=== PATIENT | female | born 1960 | race American Indian/Alaskan Native ===

== ENCOUNTER 2019-03-31 21:35 | Observation (INO) | payer OTHER ==
--- NOTE | 2019-03-31 22:08 | Consultation ---
History of Present Illness Consult date: 03/31/19 History of present illness: [facility] Date of Service:03/31/2019 21:50:08 Impression: RO Acute Ischemic Stroke Comments: 58 YO F with h/o hypothyroidism presented with left sided weakness and slurred speech likely a small stroke. She is out of window for any acute stroke treatment. Metrics: Last Known Well: Unknown [facility] Notification Time: 03/31/2019 21:48:32 Arrival Time: 03/31/2019 21:35:00 Stamp Time: 03/31/2019 21:50:08 Time First Login Attempt: 03/31/2019 21:52:56 Video Start Time: 03/31/2019 21:52:56 Symptoms: left sided weakness/slurred speech NIHSS Start Assessment Time: 03/31/2019 21:55:23 Patient is not a candidate for tPA. Patient was not deemed candidate for tPA thrombolytics because of Last Well Known Above 4.5 Hours. Video End Time: 03/31/2019 22:03:29 CT head showed no acute hemorrhage or acute core infarct. Advanced imaging was not obtained as the presentation was not suggestive of Large Vessel Occlusive Disease. ER Physician notified of the decision on thrombolytics management on 03/31/2019 22:03:30 Our recommendations are outlined below. Recommendations: Activate Stroke Protocol Admission/Order Set Stroke/Telemetry Floor Neuro Checks Bedside Swallow Eval DVT Prophylaxis IV Fluids, Normal Saline Head of Bed Below 30 Degrees Euglycemia and Avoid Hyperthermia (PRN Acetaminophen) Initiate Aspirin 81 MG Daily Recommended Scan: MRI Head Carotid Dopplers Lipid Panel to Be Obtained, if Not Done in the Last Three Months Therapies: Physical Therapy, Occupational Therapy, Speech Therapy Assessment When Applicable Dysphaghia Screen: Swallow Evaluation, Bedside NPO Until Swallow Evaluation DVT prophylaxis: Choice of Primary Team Disposition: Follow up with Teleneurology Follow up Sign Out: Discussed with Emergency Department Provider History of Present Illness: Patient is a 58 year old Female. Patient was brought by private transportation with symptoms of left sided weakness/slurred speech 58 YO F with h/o hypothyroidism presented with left sided weakness and slurred speech. she states that left sided weakness started on Sunday but she started having slurred speech about half an hour ago [employer]. CT head showed no acute hemorrhage or acute core infarct. Examination: BP(139/77),Pulse(82),Blood Glucose(92) 1A: Level of Consciousness - Alert; keenly responsive+ 0 1B: Ask Month and Age - Both Questions Right+ 0 1C: Blink Eyes & Squeeze Hands - Performs Both Tasks+ 0 2: Test Horizontal Extraocular Movements - Normal+ 0 3: Test Visual Chavira - No Visual Loss+ 0 4: Test Facial Palsy (Use Grimace if Obtunded) - Normal symmetry+ 0 5A: Test Left Arm Motor Drift - No Drift for 10 Seconds+ 0 5B: Test Right Arm Motor Drift - No Drift for 10 Seconds+ 0 6A: Test Left Leg Motor Drift - No Drift for 5 Seconds+ 0 6B: Test Right Leg Motor Drift - No Drift for 5 Seconds+ 0 7: Test Limb Ataxia (FNF/Heel-Carnes) - No Ataxia+ 0 8: Test Sensation - Mild-Moderate Loss: Less Sharp/More Dull+ 1 9: Test Language/Aphasia - Normal; No aphasia+ 0 10: Test Dysarthria - Mild-Moderate Dysarthria: Slurring but can be understood+ 1 11: Test Extinction/Inattention - No abnormality+ 0 NIHSS Score:2 Patient was informed the Neurology Consult would happen via TeleHealth consult by way of interactive audio and video telecommunications and consented to receiving care in this manner. Due to the immediate potential for life-threatening deterioration due to underlying acute neurologic illness, I spent 35 minutes providing critical care. This time includes time for face to face visit via telemedicine, review of medical records, imaging studies and discussion of findings with providers, the patient and/or family. Dr Olivier Tesfaye [facility] Case [id number] Medications and Allergies Allergies Allergy/AdvReac Type Severity Reaction Status Date / Time No Known Allergies Allergy Unverified 07/04/13 16:45 Home Medications Medication Instructions Recorded Confirmed Last Taken Type HYDROcodone/APAP 7.5-325 [[place] 1 each PO Q6HR PRN #20 tablet 07/04/13 Unknown Rx 7.5/325 mg] Levothyroxine [Synthroid] 50 mcg PO QAM 07/04/13 07/04/13 07/04/13 History
--- NOTE | 2019-03-31 22:11 | Cat Scan Report ---
CT HEAD WITHOUT CONTRAST INDICATION : neuro deficits <6hrs or sx present upon awakening. TECHNIQUE: Axial, coronal and sagittal CT imaging was performed from the skull apex through the skul l base without contrast. All CT scans at this location are performed using CT dose reduction for ALA RA by means of automated exposure control. COMPARISON: None available. FINDINGS: PARENCHYMA: No mass, midline shift, hemorrhage, extraaxial collection or acute territorial infarctio n. VENTRICLES: Symmetric and normal in size. SOFT TISSUES: Soft tissues including the orbits appear normal. BONES: No acute osseous abnormality. SINUSES: No significant abnormality. ADDITIONAL FINDINGS: None. IMPRESSION: No acute intracranial abnormality. CRITICAL RESULT: Radiologist: Dr. Thurman Time of Discovery: 21:00 APPRENTICESHIP CONSULTANT Time of Communication: 21:06 APPRENTICESHIP CONSULTANT Licensed Practitioner Receiving Report: Dr. Corrigan Read Back Performed: Yes. Signer Name: Kee Thurman MD Signed: 03/31/2019 10:07 PM Workstation Name: [id number]
[2019-03-31 23:00] LABS: Hemoglobin 13.7 gm/dl (10.1-14.3); Mean Corpuscular HGB Conc 33 % (30-34); Mean Corpuscular Volume 96 fl (79-97); Platelet Count 254 K/mm3 (140-440); Red Blood Count 4.37 M/mm3 (3.65-5.03); Red Cell Distribution Width 13.5 % (13.2-15.2)
--- NOTE | 2019-03-31 23:03 | Emergency Department Report ---
ED General Adult HPI - General Chief complaint: Neuro Symptoms/Deficit Stated complaint: LEFT SIDE PAIN Time Seen by Provider: 03/31/19 21:50 Source: patient, family Mode of arrival: Wheelchair Limitations: No Limitations - History of Present Illness Initial comments: Patient presents to the emergency department with a chief complaint left-sided weakness that started on Sunday. Patient states that she began to have slurred speech today approximately a half an hour before arrival to the ED. Patient also complains of neck pain that. Patient also complains of neck pain that radiates into her left arm. She states this has been present for the last couple of days as well. Patient denies any chest pain, shortness breath, or abdominal pain. -: Sudden Location: upper extremity Severity scale (0 -10): 4 Quality: aching Consistency: constant Improves with: none Worsens with: none Associated Symptoms: denies other symptoms Treatments Prior to Arrival: none - Related Data Home Medications Medication Instructions Recorded Confirmed Last Taken Levothyroxine [Synthroid] 50 mcg PO QAM 07/04/13 04/01/19 03/31/19 Allergies Allergy/AdvReac Type Severity Reaction Status Date / Time No Known Allergies Allergy Unverified 07/04/13 16:45 ED Review of Systems ROS: Stated complaint: LEFT SIDE PAIN Other details as noted in HPI Comment: All other systems reviewed and negative Constitutional: denies: chills, fever Eyes: denies: eye pain, eye discharge, vision change ENT: denies: ear pain, throat pain Respiratory: denies: cough, shortness of breath, wheezing Cardiovascular: denies: chest pain, palpitations Endocrine: no symptoms reported Gastrointestinal: denies: abdominal pain, nausea, diarrhea Genitourinary: denies: urgency, dysuria, discharge Musculoskeletal: denies: back pain, joint swelling, arthralgia Skin: denies: rash, lesions Neurological: denies: headache, weakness, paresthesias Psychiatric: denies: anxiety, depression Hematological/Lymphatic: denies: easy bleeding, easy bruising ED Past Medical Hx - Past Medical History Additional medical history: Hypothyroidism - Surgical History Additional Surgical History: Tubaligation - Social History Smoking Status: Current Every Day Smoker Substance Use Type: Alcohol, Prescribed - Medications Home Medications: Home Medications Medication Instructions Recorded Confirmed Last Taken Type Levothyroxine [Synthroid] 50 mcg PO QAM 0204/01/19 03/31/19 History ED Physical Exam - General Limitations: No Limitations General appearance: alert, in no apparent distress - Head Head exam: Present: atraumatic, normocephalic - Eye Eye exam: Present: normal appearance, PERRL, EOMI - ENT ENT exam: Present: mucous membranes moist - Neck Neck exam: Present: normal inspection - Respiratory Respiratory exam: Present: normal lung sounds bilaterally. Absent: respiratory distress, wheezes, rales - Cardiovascular Cardiovascular Exam: Present: regular rate, normal rhythm. Absent: systolic murmur, diastolic murmur, rubs, gallop - GI/Abdominal GI/Abdominal exam: Present: soft, normal bowel sounds. Absent: distended, tenderness - Extremities Exam Extremities exam: Present: normal inspection - Back Exam Back exam: Present: normal inspection - Neurological Exam Neurological exam: Present: alert, oriented X3, CN II-XII intact. Absent: motor sensory deficit - Psychiatric Psychiatric exam: Present: normal affect, normal mood - Skin Skin exam: Present: warm, dry, intact, normal color. Absent: rash ED Medical Decision Making - Lab Data Result diagrams: 03/31/19 22:23 03/31/19 22:23 Lab Results 03/31/19 03/31/19 03/31/19 Range/Units 21:51 22:23 22:23 WBC 4.7 (4.5-11.0) K/mm3 RBC 4.37 (3.65-5.03) M/mm3 Hgb 13.7 (10.1-14.3) gm/dl Hct 42.0 (30.3-42.9) % MCV 96 (79-97) fl MCH 31 (28-32) pg MCHC 33 (30-34) % RDW 13.5 (13.2-15.2) % Plt Count 254 (140-440) K/mm3 Add Manual Diff Complete Total Counted 100 Seg Neutrophils % Machine I Coremaker Seg Neuts % (Manual) 33.0 L (40.0-70.0) % Band Neutrophils % 0 % Lymphocytes % (Manual) 54.0 H (13.4-35.0) % Reactive Lymphs % (Man) 0 % Monocytes % (Manual) 10.0 H (0.0-7.3) % Eosinophils % (Manual) 3.0 (0.0-4.3) % Basophils % (Manual) 0 (0.0-1.8) % Metamyelocytes % 0 % Myelocytes % 0 % Promyelocytes % 0 % Blast Cells % 0 % Nucleated RBC % Not Reportable Seg Neutrophils # Man 1.6 L (1.8-7.7) K/mm3 Band Neutrophils # 0.0 K/mm3 Lymphocytes # (Manual) 2.5 (1.2-5.4) K/mm3 Abs React Lymphs (Man) 0.0 K/mm3 Monocytes # (Manual) 0.5 (0.0-0.8) K/mm3 Eosinophils # (Manual) 0.1 (0.0-0.4) K/mm3 Basophils # (Manual) 0.0 (0.0-0.1) K/mm3 Metamyelocytes # 0.0 K/mm3 Myelocytes # 0.0 K/mm3 Promyelocytes # 0.0 K/mm3 Blast Cells # 0.0 K/mm3 WBC Morphology Not Reportable Hypersegmented Neuts Not Reportable Hyposegmented Neuts Not Reportable Hypogranular Neuts Not Reportable Smudge Cells Not Reportable Toxic Granulation Not Reportable Toxic Vacuolation Not Reportable Dohle Bodies Not Reportable Pelger-Huet Anomaly Not Reportable Mami Rods Not Reportable Platelet Estimate Consistent w auto Clumped Platelets Not Reportable Plt Clumps, EDTA Not Reportable Large Platelets Not Reportable Giant Platelets Not Reportable Platelet Satelliting Not Reportable Plt Morphology Comment Not Reportable RBC Morphology Not Reportable Dimorphic RBCs Not Reportable Polychromasia Not Reportable Hypochromasia Not Reportable Poikilocytosis Not Reportable Anisocytosis Not Reportable Microcytosis Not Reportable Macrocytosis Not Reportable Spherocytes Not Reportable Pappenheimer Bodies Not Reportable Sickle Cells Not Reportable Target Cells Not Reportable Tear Drop Cells Not Reportable Ovalocytes Not Reportable Stomatocytes Rare Helmet Cells Not Reportable [place] Bodies Not Reportable [place] Rings Not Reportable [place] Cells Not Reportable Bite Cells Not Reportable Crenated Cell Not Reportable Elliptocytes Not Reportable Acanthocytes (Spur) Not Reportable Rouleaux Not Reportable Hemoglobin C Crystals Not Reportable Schistocytes Not Reportable Malaria parasites Not Reportable Elio Bodies Not Reportable Hem Pathologist Commnt No PT 12.1 L (12.2-14.9) Sec. INR 0.90 (0.87-1.13) APTT 32.4 (24.2-36.6) Sec. Thrombin Time (15.1-19.6) Sec. Sodium (137-145) mmol/L Potassium (3.6-5.0) mmol/L Chloride (98-107) mmol/L Carbon Dioxide (22-30) mmol/L Anion Gap mmol/L BUN (7-17) mg/dL Creatinine (0.7-1.2) mg/dL Estimated GFR ml/min BUN/Creatinine Ratio % Glucose (65-100) mg/dL POC Glucose 92 (70-105) Troponin T (0.00-0.029) ng/mL 03/31/19 03/31/19 Range/Units 22:23 22:23 WBC (4.5-11.0) K/mm3 RBC (3.65-5.03) M/mm3 Hgb (10.1-14.3) gm/dl Hct (30.3-42.9) % MCV (79-97) fl MCH (28-32) pg MCHC (30-34) % RDW (13.2-15.2) % Plt Count (140-440) K/mm3 Add Manual Diff Total Counted Seg Neutrophils % Seg Neuts % (Manual) (40.0-70.0) % Band Neutrophils % % Lymphocytes % (Manual) (13.4-35.0) % Reactive Lymphs % (Man) % Monocytes % (Manual) (0.0-7.3) % Eosinophils % (Manual) (0.0-4.3) % Basophils % (Manual) (0.0-1.8) % Metamyelocytes % % Myelocytes % % Promyelocytes % % Blast Cells % % Nucleated RBC % Seg Neutrophils # Man (1.8-7.7) K/mm3 Band Neutrophils # K/mm3 Lymphocytes # (Manual) (1.2-5.4) K/mm3 Abs React Lymphs (Man) K/mm3 Monocytes # (Manual) (0.0-0.8) K/mm3 Eosinophils # (Manual) (0.0-0.4) K/mm3 Basophils # (Manual) (0.0-0.1) K/mm3 Metamyelocytes # K/mm3 Myelocytes # K/mm3 Promyelocytes # K/mm3 Blast Cells # K/mm3 WBC Morphology Hypersegmented Neuts Hyposegmented Neuts Hypogranular Neuts Smudge Cells Toxic Granulation Toxic Vacuolation Dohle Bodies Pelger-Huet Anomaly Mami Rods Platelet Estimate Clumped Platelets Plt Clumps, EDTA Large Platelets Giant Platelets Platelet Satelliting Plt Morphology Comment RBC Morphology Dimorphic RBCs Polychromasia Hypochromasia Poikilocytosis Anisocytosis Microcytosis Macrocytosis Spherocytes Pappenheimer Bodies Sickle Cells Target Cells Tear Drop Cells Ovalocytes Stomatocytes Helmet Cells [place] Bodies [place] Rings Osco Cells Bite Cells Crenated Cell Elliptocytes Acanthocytes (Spur) Rouleaux Hemoglobin C Crystals Schistocytes Malaria parasites Elio Bodies Hem Pathologist Commnt PT (12.2-14.9) Sec. INR (0.87-1.13) APTT (24.2-36.6) Sec. Thrombin Time 18.2 (15.1-19.6) Sec. Sodium 141 (137-145) mmol/L Potassium 4.3 (3.6-5.0) mmol/L Chloride 104.1 (98-107) mmol/L Carbon Dioxide 25 (22-30) mmol/L Anion Gap 16 mmol/L BUN 17 (7-17) mg/dL Creatinine 0.7 (0.7-1.2) mg/dL Estimated GFR > 60 ml/min BUN/Creatinine Ratio 24 % Glucose 115 H (65-100) mg/dL POC Glucose (70-105) Troponin T < 0.010 (0.00-0.029) ng/mL - EKG Data -: EKG Interpreted by Ct EKG shows normal: sinus rhythm Rate: normal - Radiology Data Radiology results: report reviewed - Medical Decision Making Discussion discussed with tele neurology who felt the patient needed admission for further workup for stroke. Patient did have remaining mouth slurred speech on initial and repeat exams Results and plan of care discussed the patient Critical care attestation.: If time is entered above; I have spent that time in minutes in the direct care o f this critically ill patient, excluding procedure time. ED Disposition Clinical Impression: Slurred speech Disposition: [id number] OP ADMIT IP TO THIS HOSP Is pt being admited?: Yes Does the pt Need Aspirin: Yes Condition: Fair - Assessment Assessment Interval: Baseline - Level of Consciousness 1a. Level of Consciousness: alert/keenly responsive - LOC Questions 1b. LOC Questions: answers both correctly - LOC Command 1c. LOC Commands: performs tasks correctly - Best Gaze 2. Best Gaze: normal - Visual 3. Visual: no visual loss - Facial Palsy 4. Facial Palsy: normal symmetrical movement - Motor Arm 5a. Motor Arm Left: no drift 5b. Motor Arm Right: no drift - Motor Leg 6a. Motor Leg Left: no drift 6b. Motor Leg Right: no drift - Limb Ataxia 7. Limb Ataxia: absent - Sensory 8. Sensory: normal - Best Language 9. Best Language: no aphasia - Dysarthria 10. Dysarthria: mild/moderate dysarthria - Extinction and Inattention 11. Extinction/Inattention: no abnormality - Scoring Total Score: 1 Stroke Severity: Minor Stroke
[2019-03-31 23:12] LABS: INR 0.9 (0.87-1.13)
[2019-03-31 23:13] LABS: Partial Thromboplastin Time 32.4 Sec. (24.2-36.6)
[2019-03-31 23:25] LABS: BUN/Creatinine Ratio 24; Blood Urea Nitrogen 17 mg/dL (7-17); Hemolysis Index 57
[2019-04-01] MEDS ORDERED: HYDROcodone/ACETAMINOPHEN 5-325 MG TAB PO ONE (00:01)
[2019-04-01] MEDS ORDERED: HYDROcodone/ACETAMINOPHEN 5-325 MG TAB ONE (00:04)
[2019-04-01 00:21] LABS: Basophils % (Manual) 0 % (0.0-1.8); Total Cells Counted 100
[2019-04-01 00:22] LABS: Platelet Estimate Consistent w Auto; Stomatocytes Rare
[2019-04-01] MEDS ORDERED: METOCLOPRAMIDE 10 MG TAB PO PRN (01:13)
[2019-04-01] MEDS ORDERED: MAGNESIUM HYDROXIDE (MOM) ORAL LIQD UDC PO PRN (01:13)
[2019-04-01] MEDS ORDERED: ACETAMINOPHEN 325 MG TAB PO PRN (01:13)
[2019-04-01] MEDS ORDERED: PROMETHAZINE 25 MG RECT SUPP PR PRN (01:13)
[2019-04-01] MEDS ORDERED: ONDANSETRON 4 MG/2 ML INJ IV PRN (01:13)
--- NOTE | 2019-04-01 01:28 | History and Physical Report ---
History of Present Illness Date of examination: 04/01/19 Date of admission: 04/01/19 00:27 Chief complaint: Left upper extremity and left facial numbness History of present illness: 58 year old female with known history of hypothyroidism presenting to the emergency room today complaining of slurred speech left sided facial numbness and left upper extremity pain and numbness. This has been ongoing for a couple of hours and upon arrival in the emergency room symptoms had resolved She was evaluated by the telemetry neurologist and was determined that she is not a TPA candidate. He has also been having some neck pain, she denies any fall or trauma to the neck. She denies any headache. Workup in the emergency room including CT scan of the head was unremarkable. Past History Past Medical History: hypothyroidism, other Past Surgical History: Other (bilateral tubal ligation, left knee surgery.) Social history: alcohol abuse (alcohol occasionally, denies tobacco abuse) Family history: cancer (Both parents had pancreatic cancer, mother had breast cancer, mother also had diabetes mellitus.), hypertension (father had hypertension) Medications and Allergies Allergies Allergy/AdvReac Type Severity Reaction Status Date / Time No Known Allergies Allergy Unverified 07/04/13 16:45 Home Medications Medication Instructions Recorded Confirmed Last Taken Type Levothyroxine [Synthroid] 50 mcg PO QAM 07/04/13 04/01/19 03/31/19 History Active Meds: Active Medications Acetaminophen (Tylenol) 650 mg PO Q4H PRN PRN Reason: Pain, Mild (1-3) Aspirin (Aspirin) 325 mg PO QDAY AMBROSIO Bisacodyl (Dulcolax) 10 mg OH QDAY PRN PRN Reason: Constipation Magnesium Hydroxide (Milk Of Magnesia) 30 ml PO Q4H PRN PRN Reason: Constipation Metoclopramide HCl (Reglan) 10 mg PO Q6H PRN PRN Reason: Nausea And Vomiting Morphine Sulfate (Morphine) 2 mg IV Q4H PRN PRN Reason: Pain, Moderate (4-6) Ondansetron HCl (Zofran) 4 mg IV Q8H PRN PRN Reason: Nausea And Vomiting Promethazine HCl (Phenergan) 25 mg OH Q6H PRN PRN Reason: Nausea And Vomiting Sodium Chloride (Sodium Chloride Flush Syringe 10 Ml) 10 ml INJ PRN PRN PRN Reason: LINE FLUSH Exam - Constitutional Vitals: Temp Pulse Resp BP Pulse Ox 70 19 129/71 96 03/31/19 23:15 03/31/19 23:15 03/31/19 23:15 03/31/19 23:15 General appearance: Present: no acute distress, well-nourished - EENT Eyes: Present: PERRL, EOM intact ENT: hearing intact, clear oral mucosa - Neck Neck: Present: supple, normal ROM - Respiratory Respiratory effort: normal Respiratory: bilateral: CTA - Cardiovascular Rhythm: regular Heart Sounds: Present: S1 & S2 - Extremities Extremities: no ischemia, pulses intact, No edema Peripheral Pulses: within normal limits - Abdominal General gastrointestinal: Present: soft, non-tender, non-distended - Integumentary Integumentary: Present: clear, warm, dry - Musculoskeletal Musculoskeletal: strength equal bilaterally - Psychiatric Psychiatric: appropriate mood/affect, intact judgment & insight, cooperative - Neurologic Neurologic: CNII-XII intact, moves all extremities Results - Labs CBC & Chem 7: 03/31/19 22:23 03/31/19 22:23 Labs: Abnormal lab results 03/31/19 03/31/19 03/31/19 Range/Units 22:23 22:23 22:23 Seg Neuts % (Manual) 33.0 L (40.0-70.0) % Lymphocytes % (Manual) 54.0 H (13.4-35.0) % Monocytes % (Manual) 10.0 H (0.0-7.3) % Seg Neutrophils # Man 1.6 L (1.8-7.7) K/mm3 PT 12.1 L (12.2-14.9) Sec. Glucose 115 H (65-100) mg/dL Assessment and Plan - Patient Problems (1) Slurred speech Current Visit: Yes Status: Acute Plan to address problem: Slurred Speech has resolved however will be worked up for CVA. She is scheduled for carotid Doppler and MRI of the brain. With requests neurology follow-up. (2) Hypothyroidism Current Visit: Yes Status: Acute Plan to address problem: Resume routine home medications once reconciled (3) DVT prophylaxis Current Visit: Yes Status: Acute Plan to address problem: Placed on subcutaneous heparin. (4) Full code status Current Visit: Yes Status: Acute
[2019-04-01 01:30] LABS: Calcium 9.5 mg/dL (8.4-10.2)
[2019-04-01] MEDS: MORPHINE 2 MG/1 ML INJ IV PRN ×2 (05:49→14:42)
[2019-04-01] MEDS ORDERED: ASPIRIN 325 MG TAB PO SCH (10:00)
--- NOTE | 2019-04-01 12:13 | Magnetic Resonance Report ---
MRI BRAIN WITHOUT CONTRAST, MRA HEAD WITHOUT CONTRAST, MRA NECK WITHOUT CONTRAST INDICATION / CLINICAL INFORMATION: stroke. Patient symptoms include left facial numbness and slurred speech. TECHNIQUE: Multiplanar, multi sequential MRI images of the brain. Routine MRA of the head and routine MRA of th e neck are performed. 3-D/MIP reformats postprocessed. Percentage stenosis is determined by direct qu antitative measurements of distal internal carotid artery diameter compared with normal reference seg ments or by criteria similar to NASCET where applicable. COMPARISON: None available. FINDINGS: MR BRAIN: BRAIN / INTRACRANIAL CONTENTS: No acute ischemia, acute hemorrhage, mass effect, midline shift, or hy drocephalus. No chronic infarct or significant atrophy. No significant demyelinating changes. CRANIOCERVICAL JUNCTION: No significant abnormality. ORBITS: No significant abnormality of visualized orbits. SINUSES / MASTOIDS: There is mild fluid/mucosal thickening partially opacifying the left mastoid. ADDITIONAL FINDINGS: None. MRA HEAD: Intracranial vertebral arteries: No significant abnormality. Basilar artery: No significant abnormality. Posterior cerebral arteries: No significant abnormality. Intracranial internal carotid arteries: No significant abnormality. Anterior cerebral arteries: No significant abnormality. Middle cerebral arteries: No significant abnormality. Additional findings: None. MRA NECK: Aortic arch: No significant abnormality. Cervical vertebral arteries: No significant abnormality. Common carotid arteries: No significant abnormality. Cervical internal carotid arteries: No significant abnormality. Additional findings: None. IMPRESSION: 1. No evidence of acute infarct or other acute intracranial abnormality. The brain appears normal for age. 2. No significant stenosis or large vessel occlusion in the cervical or intracranial arteries. Signer Name: Juventino Hillman MD Signed: 04/01/2019 12:09 PM Workstation Name: [id number]
--- NOTE | 2019-04-01 12:24 | Event Note ---
Date: 04/01/19 Patient with left sided weakness, numbness. I have seen and examined her. MRI pending
--- NOTE | 2019-04-01 13:48 | Consultation ---
History of Present Illness Consult date: 04/01/19 Reason for Consult: Possible stroke Chief complaint: Left sided weakness History of present illness: Patient is a 58 y/o woman w/ h/o hypothyroidism. She states that her symptoms initially began 4 days ago, as she developed pain in the neck, that radiated to the LUE. She also noted some mild weakness in LUE/LLE. Yesterday at about 10pm, she developed slurred speech, and paresthesias on left cheek, which have persisted. Patient denies any falls or head injury. She states that weakness has improved, however she continues to experience pain in the neck that radiates to LUE. Past History Past Medical History: hypothyroidism, other Past Surgical History: Other (bilateral tubal ligation, left knee surgery.) Social history: smoking Family history: cancer (Both parents had pancreatic cancer, mother had breast cancer, mother also had diabetes mellitus.), hypertension (father had hypertension) Medications and Allergies Allergies Allergy/AdvReac Type Severity Reaction Status Date / Time No Known Allergies Allergy Unverified 07/04/13 16:45 Home Medications Medication Instructions Recorded Confirmed Last Taken Type Levothyroxine [Synthroid] 50 mcg PO QAM 07/04/13 04/01/19 03/31/19 History Active Meds: Active Medications Acetaminophen (Tylenol) 650 mg PO Q4H PRN PRN Reason: Pain, Mild (1-3) Aspirin (Aspirin) 325 mg PO QDAY AMBROSIO Bisacodyl (Dulcolax) 10 mg MO QDAY PRN PRN Reason: Constipation Magnesium Hydroxide (Milk Of Magnesia) 30 ml PO Q4H PRN PRN Reason: Constipation Metoclopramide HCl (Reglan) 10 mg PO Q6H PRN PRN Reason: Nausea And Vomiting Morphine Sulfate (Morphine) 2 mg IV Q4H PRN PRN Reason: Pain, Moderate (4-6) Last Admin: 04/01/19 05:49 Dose: 2 mg Documented by: Ondansetron HCl (Zofran) 4 mg IV Q8H PRN PRN Reason: Nausea And Vomiting Promethazine HCl (Phenergan) 25 mg MO Q6H PRN PRN Reason: Nausea And Vomiting Sodium Chloride (Sodium Chloride Flush Syringe 10 Ml) 10 ml IV PRN PRN PRN Reason: LINE FLUSH Last Admin: 04/01/19 05:51 Dose: 10 ml Documented by: Review of Systems All systems: negative Musculoskeletal: neck pain Neurological: weakness, parathesias, change in speech Physical Examination - Vital Signs Vital Signs: Vital Signs Pulse Resp BP Pulse Ox 81 18 134/73 97 03/31/19 22:15 03/31/19 22:15 03/31/19 22:15 03/31/19 22:15 - Physical Exam Narrative exam: Patient is alert, awake, oriented x4. Follows complex commands. PERRL, EOMI, VFF, no facial weakness noted, tongue midline, mild decrease to LT on left V2 distribution. 5/5 strength in all extremities. b/l intact to LT. B/l intact to FTN and HTS. 2+ reflexes throughout. No dysarthria or aphasia noted. - Constitutional General appearance: comfortable - EENT EENT: Present: ATNC, PERRL, mucous membranes moist, hearing intact, vision intact - Respiratory Respiratory: Present: lungs clear, normal breath sounds - Cardiovascular Cardiovascular: Present: regular rate, normal S1, normal S2 Extremities: Present: no clubbing, cyanosis, no inflammation - Gastrointestinal Gastrointestinal: Present: normoactive bowel sounds, soft, non-tender - Integumentary Integumentary: Present: normal - Musculoskeletal Musculoskeletal: Present: no fluid collection - Psychiatric Psychiatric: Present: mood/affect appropriate - Level of Consciousness 1a. Level of Consciousness: alert/keenly responsive - LOC Questions 1b. LOC Questions: answers both correctly - LOC Command 1c. LOC Commands: performs tasks correctly - Best Gaze 2. Best Gaze: normal - Visual 3. Visual: no visual loss - Facial Palsy 4. Facial Palsy: normal symmetrical movement - Motor Arm 5a. Motor Arm Left: no drift 5b. Motor Arm Right: no drift - Motor Leg 6a. Motor Leg Left: no drift 6b. Motor Leg Right: no drift - Limb Ataxia 7. Limb Ataxia: absent - Sensory 8. Sensory: mild/moderate sensory loss - Best Language 9. Best Language: no aphasia - Dysarthria 10. Dysarthria: normal - Extinction and Inattention 11. Extinction/Inattention: no abnormality - Scoring Total Score: 1 Stroke Severity: Minor Stroke Results - Laboratory Findings CBC and BMP: 03/31/19 22:23 03/31/19 22:23 Abnormal Lab Findings: Abnormal Labs 03/31/19 03/31/1903/31/19 22:23 22:23 22:23 Seg Neuts % (Manual) 33.0 L Lymphocytes % (Manual) 54.0 H Monocytes % (Manual) 10.0 H Seg Neutrophils # Man 1.6 L PT 12.1 L Glucose 115 H Assessment and Plan Patient is a 58 y/o woman w/ h/o hypothyroidism, who p/w neck pain, and left sided weakness. According to the patient's clinical findings, it is possible that the patient has cervical myelopathy vs. TIA vs. conversion d/o. MRI did not show any evidence of a stroke and patient states that her main complaint is cervical pain, that radiates to LUE. Plan: 1. Neck pain w/ left sided weakness: - Weakness on LUE/LLE improved. No notable weakness on exam - MRI brain: unremarkable - MRA head/neck: no significant stenosis - MRI Cervical spine pending - Echo pending - Cont. ASA - LDL pending. - PT/OT/ST - Telemetry monitoring while in house - DVT Ppx: recommend lovenox - Blood pressure: recommend BP target of normotension, as no evidence of stroke on MRI brain. - Will continue to monitor patient. Thank you for allowing me to take part in the care of this patient. Randy Kessler MD Neurology
--- NOTE | 2019-04-01 14:13 | Magnetic Resonance Report ---
MRI CERVICAL SPINE WITHOUT CONTRAST INDICATION / CLINICAL INFORMATION: neck pain and left sided weakness. TECHNIQUE: Multisequence, multiplanar images of the cervical spine were obtained. COMPARISON: None available. FINDINGS: CRANIOCERVICAL JUNCTION:No significant abnormality. ALIGNMENT: There is gentle reversal of the cervical lordosis without focal subluxation. VERTEBRAE:Normal marrow signal and vertebral body height for age. VISUALIZED SPINAL CORD: No cord signal abnormality. [id number] ANALYSIS: C2-3: No significant disc abnormality, spinal canal stenosis, or neural foraminal stenosis. C3-4: There is a broad-based disc osteophyte complex resulting in moderate canal stenosis with slight contact of the ventral cord surface. There is mild left neural foraminal narrowing secondary to unco vertebral DJD. C4-5: There is a broad-based disc osteophyte complex causing mild central canal stenosis. There is mo derate left and moderate right neural foraminal narrowing secondary to uncovertebral DJD. C5-6: There is a broad-based disc osteophyte complex resulting in moderate canal stenosis with slight contact and flattening of the ventral cord surface. There is moderate bilateral neural foraminal geovanny rowing secondary to uncovertebral DJD. C6-7: There is a broad-based disc osteophyte complex resulting in mild canal stenosis. There is no si gnificant neural foraminal stenosis. C7-T1: No significant disc abnormality, spinal canal stenosis, or neural foraminal stenosis. PARASPINAL SOFT TISSUES: No significant abnormality. ADDITIONAL FINDINGS: None. IMPRESSION: 1. Degenerative findings from C3 through C7 as described with multilevel mild to moderate canal steno sis without focal cord signal abnormality. 2. Multifocal mild to moderate neural foraminal narrowing, greatest bilaterally at C4-5 and C5-6. Signer Name: Juventino Hillman MD Signed: 04/01/2019 2:08 PM Workstation Name: [id number]
[2019-04-01 15:38] LABS: Chol/HDL Ratio 2.76 %
--- NOTE | 2019-04-01 16:14 | Vascular Lab Report ---
CLINICAL DATA: Stroke TECHNICAL DATA: Imaging was performed from the base of the neck to the skull base using duplex sonography and color-f low imaging with emphasis on the carotid and vertebral arterial systems. RIGHT CAROTID ARTERY: The right internal carotid artery, right external carotid, and right common carotid artery all well i jacques and patent. Mild atherosclerotic plaque present at the carotid bifurcation. Right common carotid artery peak systolic velocity 90 cm/sec Right internal carotid artery peak systolic velocity 111 cm/sec Right internal carotid artery end diastolic velocity 32 cm/sec Right internal carotid artery/right common carotid artery ratio 1.24 Vertebral artery flow is antegrade. LEFT CAROTID ARTERY The left internal carotid artery, left external carotid, and left common carotid artery all well imag ed and patent. Mild atherosclerotic plaque present at the carotid bifurcation. Left common carotid artery peak systolic velocity 98 cm/sec Left internal carotid artery peak systolic velocity 107 cm/sec Left internal carotid artery end diastolic velocity 27 cm/sec Left internal carotid artery/right common carotid artery ratio 1.09 Normal antegrade flow of the vertebral arteries. Also noted is a 1 cm complex area right lower thyroid recommend thyroid ultrasound further evaluation IMPRESSION: 1. Sonographic NASCET Index This study proposed the incorporation of distal ICA flow velocity information on the conventional car otid Doppler study improving the diagnostic accuracy of PSV 1. Internal carotid arteries demonstrate <15% stenosis: deceleration spectral broadening with a peak systolic velocity (PSV) <125 cm/s 2. Normal common carotid arteries. 3. Normal external carotid arteries. 4. Antegrade flow both vertebral arteries. Sonographic NASCET Index This study proposed the incorporation of distal ICA flow velocity information on the conventional car otid Doppler study improving the diagnostic accuracy of PSV 1. * <15% stenosis: * deceleration spectral broadening with a peak systolic velocity (PSV) <125 cm/s * 16-49% stenosis: * pansystolic spectral broadening with a PSV <125 cm/s * 50-69% stenosis: * pansystolic spectral broadening with a PSV of >125 cm/s * and * end diastolic velocity (EDV) <110 cm/s or ICA/CCA PSV ratio >2 but <4 * 70-79% stenosis: * pansystolic spectral broadening with PSV >270 cm/s * or * EDV >110 cm/s * or * ICA/CCA PSV ratio >4 * 80-99% stenosis: EDV >140 cm/s * complete occlusion: no flow; terminal thump Signer Name: Braulio Edwards MD Signed: 04/01/2019 4:10 PM Workstation Name: [id number]
[2019-04-02] MEDS: MORPHINE 2 MG/1 ML INJ IV PRN ×2 (06:01→09:53)
[2019-04-02 12:30] VITALS: BP 104/63
--- NOTE | 2019-04-02 12:40 | Discharge Summary ---
Providers - Providers Date of Admission: 04/01/19 00:27 Date of discharge: 04/02/19 Attending physician: NED SAEED 04/01/19 Consult to Physician [CONS] Routine Comment: Consulting Provider: KAROLINA MCKNIGHT Physician Instructions: Reason For Exam: R/O CVA 04/01/19 01:13 Consult to Dietitian/Nutrition [CONS] Routine Physician Instructions: Reason For Exam: Reason for Consult: Nutrition Recommendations Reason for Consult: Diet education Occupational Therapy Evaluate and Treat [CONS] Routine Comment: Reason For Exam: Neuro deficits Physical Therapy Evaluation and Treat [CONS] Routine Comment: Reason For Exam: Neuro deficits Primary care physician: SARA CASTILLO Hospitalization Condition: Fair Hospital course: 58 year old female with known history of hypothyroidism presented to the emergency room complaining of slurred speech, left sided facial numbness and left upper extremity pain and numbness. This has been ongoing for a couple of hours and upon arrival in the emergency room symptoms had resolved. She was seen and evaluated. CTY head was negative. Patient was given Aspirin and admitted to rule out stroke. MRI Brain was negative for stroke. Cervical spine MRI was done revealed degenerative disease but no cord compression. Patient was diagnosed with TIA, and cervical degenerative disease was discharged home. Disposition: - TO HOME OR SELFCARE - Discharge Diagnoses (1) TIA (transient ischemic attack) Status: Acute (2) Cervical spine degeneration Status: Acute (3) Hypothyroidism Status: Chronic (4) Slurred speech Status: Acute Core Measure Documentation - Palliative Care Palliative Care/ Comfort Measures: Not Applicable - Core Measures Any of the following diagnoses?: none Exam - Constitutional Vitals: Temp Pulse Resp BP Pulse Ox 98.2 F 61 18 104/63 96 04/02/19 12:02 04/02/19 12:02 04/02/19 12:02 04/02/19 12:02 04/02/19 12:02 Plan Activity: advance as tolerated Diet: low fat, low cholesterol, low salt Plan of Treatment: 1.Follow up with PCP in 1 week. 2.follow up with Neurosurgeon in 1 week Follow up with: PRIMARY CARE, [Referring] - 7 Days Prescriptions: Aspirin EC [Halfprin EC] 81 mg PO QDAY #30 tablet. AtorvaSTATin [Lipitor] 40 mg PO QHS #30 tablet Ibuprofen [Motrin 400 MG tab] 400 mg PO Q8H PRN #20 tablet PRN Reason: Pain , Severe (7-10) Other Discharge Orders: Physicial Therapy (Amb) Location: None Selected
--- NOTE | 2019-04-02 13:30 | Progress Note ---
Assessment and Plan Patient is a 58 y/o woman w/ h/o hypothyroidism, who p/w neck pain, and left sided weakness. According to the patient's clinical findings, it is possible that the patient has cervical myelopathy vs. TIA vs. conversion d/o. MRI did not show any evidence of a stroke and patient states that her main complaint is cervical pain, that radiates to LUE. Plan: 1. Neck pain w/ left sided weakness: - Weakness on LUE/LLE improved. No notable weakness on exam - MRI brain: unremarkable - MRA head/neck: no significant stenosis - MRI Cervical spine- no spinal cord compression. Recommend outpatient f/u with neurosurgery for further evaluation. - Echo- EF 55-60%, LA size normal, bubble study inconclusive - Cont. ASA - LDL 122. Cont. statin. - PT/OT/ST - Telemetry monitoring while in house - DVT Ppx: recommend lovenox - Blood pressure: recommend BP target of normotension, as no evidence of stroke on MRI brain. - Will sign off as neurologic workup complete, and treatment plan in place. Recommend follow up with neurology outpatient in 2-3 weeks. Thank you for allowing me to take part in the care of this patient. Randy Kessler MD Neurology Subjective Date of service: 04/02/19 Principal diagnosis: TIA Interval history: No acute events overnight. Objective - Exam Narrative Exam: Patient is alert, awake, oriented x4. Follows complex commands. PERRL, EOMI, VFF, no facial weakness noted, tongue midline, mild decrease to LT on left V2 distribution. 5/5 strength in all extremities. b/l intact to LT. B/l intact to FTN and HTS. 2+ reflexes throughout. No dysarthria or aphasia noted. - Vital Sign Vital Signs - 12hr 04/02/19 04/02/19 04:14 12:02 Temperature 97.8 F 98.2 F Pulse Rate 61 61 Respiratory 24 18 Rate Blood Pressure 105/63 104/63 O2 Sat by Pulse 97 96 Oximetry - General Apperance Constitutional: comfortable - EENT EENT: ATNC, PERRL, mucous membranes moist, hearing intact, vision intact - Respiratory Respiratory: lungs clear, normal breath sounds - Cardiovascular Cardiovascular: regular rate, normal S1, normal S2 Extremities: no clubbing, cyanosis, no inflammation - Gastrointestinal Gastrointestinal: normoactive bowel sounds, soft, non-tender - Integumentary Integumentary: normal - Musculoskeletal Musculoskeletal: no fluid collection, normal range of motion - Psychiatric Psychiatric: mood/affect appropriate - Laboratory Findings CBC and BMP: 03/31/19 22:23 03/31/19 22:23 Abnormal Lab Findings: Abnormal Labs 03/31/19 03/31/19 03/31/19 22:23 22:23 22:23 Seg Neuts % (Manual) 33.0 L Lymphocytes % (Manual) 54.0 H Monocytes % (Manual) 10.0 H Seg Neutrophils # Man 1.6 L PT 12.1 L Glucose 115 H Cholesterol HDL Cholesterol 04/01/19 14:54 Seg Neuts % (Manual) Lymphocytes % (Manual) Monocytes % (Manual) Seg Neutrophils # Man PT Glucose Cholesterol 202 H HDL Cholesterol 73 H
== END 2019-04-02 17:49 | disposition home or self-care (01) ==
LOC: ED 21:35 → 3A 04-01 00:27
PROVIDERS: ADMIT Internal Medicine Geriatric Medicine; ATTEND Internal Medicine
DX: G45.9 Transient cerebral ischemic attack, unspecified (principal); R47.81 Slurred speech; E03.9 Hypothyroidism, unspecified; M54.2 Cervicalgia; F17.200 Nicotine dependence, unspecified, uncomplicated; Z98.51 Tubal ligation status; Z79.82 Long term (current) use of aspirin
CPT/HCPCS: 36415; 70450; 70544; 70547; 70551; 72141; 80048; 80061; 82962; 84484; 85007; 85025; 85610; 85670; 85730; 93005; 93010; 93306; 93880; 96374; 96376; 97161; 97165; 99284; G0378; J2270; A9270-GY